=== PATIENT | female | born 1995 | race African-American/Black ===

== ENCOUNTER 2019-07-22 09:38 | Emergency (ER) | payer OTHER, SELFPAY ==
[2019-07-22 09:50] VITALS: BP 135/98; PULSE 108; RESP 18; TEMP 36.8
--- NOTE | 2019-07-22 10:09 | ED.GENADULT ---
HPI - General Adult General Chief complaint: Upper Respiratory Infection Stated complaint: sore throat Time Seen by Provider: 07/22/19 10:10 Source: patient and RN notes reviewed Limitations: no limitations History of Present Illness HPI narrative: This is a 23 years old female presented office for evaluation of sore throat since last . Associated with dry cough. Denies fever, Or sick contact. She does not smoke. She only take cough drops for her symptoms. Related Data Home Medications Medication Instructions Recorded Confirmed Bcp 07/22/19 Allergies Allergy/AdvReac Type Severity Reaction Status Date / Time No Known Allergies Allergy Verified 07/22/19 10:03 Review of Systems Review of Systems: Narrative: CONSTITUTIONAL: Denies fever EYES: Denies visual changes ENT: Denies otalgia. CARDIOVASCULAR: Denies chest pain RESPIRATORY: Denies dyspnea, wheezing GASTROINTESTINAL: Denies abdominal pain, nausea, vomiting, diarrhea. GENITOURINARY: Denies urinary symptoms SKIN: Denies rash MUSCULOSKELETAL: Denies acute back pain, joint pain, or myalgia. NEUROLOGIC: Denies Lightheaded or dizziness PMFSH Comments At time of signature, I agree with nursing past medical, surgical, social and family history. There is no relevant family history pertinent to the presenting complaint. Exam Narrative: Exam Narrative: GENERAL: This is a well-nourished, well-developed patient, in no apparent distress. EYES: Sclera clear/white. Vision is grossly intact. EARS: External ears normal, auditory canals clear and without drainage, TMs normal without perforation. Hearing grossly intact. NOSE: External nose normal with no obvious nasal discharge, nares noted drainage and edematous THROAT: Mucous membranes moist, posterior pharynx clear. NECK: Neck supple, non-tender without lymphadenopathy, masses or thyromegaly. CARDIOVASCULAR: Regular rate and rhythm without murmurs, gallops, or rubs. RESPIRATORY: Clear to auscultation. Breath sounds equal bilaterally. No wheezes, rales, or rhonchi. GASTROINTESTINAL: Abdomen soft, non-tender, nondistended. Bowel sounds are active. No hepato-splenomegaly, or palpable masses. No guarding. SKIN: warm, intact with no suspicious lesions or rash, good texture and turgor. NEURO: awake, alert, and oriented to person, place and time. There were no obvious focal neurologic abnormalities. Steady gait [place] Coma Scale Eye Opening: Spontaneous 4 [place] Coma Scale Motor: Obeys Commands 6 [place] Coma Scale Verbal: Oriented 5 Course Vital Signs Vital signs: Vital Signs Temperature 98.2 F 07/22/19 09:50 Pulse Rate 108 H 07/22/19 09:50 Respiratory Rate 18 07/22/19 09:50 Blood Pressure 135/98 H 07/22/19 09:50 Temperature 98.2 F 07/22/19 09:50 Pulse Rate 108 H 07/22/19 09:50 Respiratory Rate 18 07/22/19 09:50 Blood Pressure 135/98 H 07/22/19 09:50 Medical Decision Making MDM Narrative Medical decision making narrative: Discharge instructions reviewed with patient, as well as provided in writing per nursing staff. The instructions also include specific and strict return/GO TO THE ER as well as f/u information. All questions have been answered, and the patient deny any further questions with discharge and discharge plan. Differential Diagnosis Differential Diagnosis: pneumonia, Allergic Rhinitis, Upper respiratory cough syndrome, Pharyngitis, Sinusitis, Bronchitis, otitis media, viral URI, Asthma/reactive airway disease, influenza Medical Records Medical records reviewed: Yes I reviewed the patient's medical records. Vital Signs Vital Signs: Vital Signs Temperature 98.2 F 07/22/19 09:50 Pulse Rate 108 H 07/22/19 09:50 Respiratory Rate 07/22/19 09:50 Blood Pressure 135/98 H 07/22/19 09:50 Temperature 98.2 F 07/22/19 09:50 Pulse Rate 108 H 07/22/19 09:50 Respiratory Rate 18 07/22/19 09:50 Blood Pressure 135/98 H 07/22/19 09:50 Lab Da
== END 2019-07-22 10:22 | disposition home or self-care (01) ==
PROVIDERS: Emergency Provider Nurse Practitioner
DX: J06.9 Acute upper respiratory infection, unspecified (principal); R03.0 Elevated blood-pressure reading, without diagnosis of hypertension
CPT/HCPCS: 87081; 87880; 99203; G0463

== ENCOUNTER 2020-02-10 19:19 | Emergency (ER) | payer OTHER, SELFPAY ==
--- NOTE | 2020-02-10 19:20 | ED.GENADULT ---
HPI - General Adult General Chief complaint: Dental/Oral Stated complaint: right side tooth pain Time Seen by Provider: 02/10/20 19:20 Source: patient Mode of arrival: ambulatory Limitations: no limitations History of Present Illness HPI narrative: 24-year-old female patient presents to the [facility] with complaints of right-sided dental pain and right ear pain. Patient states that she has had the dental pain now for about a month and is continued to get worse and recently has started making her right ear hurt. Patient states she was taking Tylenol and ibuprofen at times when it would hurt but nothing consistently. Denies any fevers, body aches or chills. Patient states that she does not have a current dentist at this time. Patient denies or breast-feeding Related Data Home Medications Medication Instructions Recorded Confirmed No Home Medications 02/10/20 02/10/20 Allergies Allergy/AdvReac Type Severity Reaction Status Date / Time No Known Allergies Allergy Verified 02/10/20 19:32 Review of Systems Review of Systems: Narrative: CONSTITUTIONAL: Denies fever, chills, or sweats. EYES: Denies visual changes, redness, or discharge. ENT: Denies rhinorrhea, congestion, sore throat, positive right otalgia. Positive right lower dental pain x1 month CARDIOVASCULAR: Denies chest pain, palpitations, or edema. RESPIRATORY: Denies cough or dyspnea. GASTROINTESTINAL: Denies abdominal pain, nausea, vomiting, or diarrhea. GENITOURINARY: Denies dysuria or hematuria. SKIN: Denies rash or itching. MUSCULOSKELETAL: Denies back pain, joint pain, or myalgia. NEUROLOGIC: Denies headache, numbness, or weakness. PSYCHIATRIC: Denies anxiety or depression. PMFSH Comments At the time of my signature I agree with nursing past medical history, surgical, social, and family history. There is no relevant family history pertinent to the presenting complaint. Exam Narrative: Exam Narrative: GENERAL: Well-appearing, well-nourished, and in no acute distress. HEAD: Normocephalic, atraumatic. EYES: PERRLA and EOMI. ENT: Nares clear, no rhinorrhea or epistaxis. Mucous membranes moist. Right TM does have some erythema noted. The canal is clear. Patient does have a broken tooth noted to the back right lower molar with surrounding erythema and tenderness. No obvious abscess noted. No obvious swelling noted to the cheek at this time. NECK: Supple. No lymphadenopathy CHEST: Clear to auscultation. No respiratory distress. HEART: Regular rate and rhythm. No murmur heard. Normal peripheral pulses. ABDOMEN: Soft, nontender, nondistended, normal active bowel sounds. EXTREMITIES: Normal range of motion. No edema. SKIN: Warm, dry, no rash. NEURO: No focal deficits. Alert and oriented x3. Course Vital Signs Vital signs: Vital Signs Temperature 37.1 C 02/10/20 19:25 Pulse Rate 91 02/10/20 19:25 Respiratory Rate 20 02/10/20 19:25 Blood Pressure 180/90 H 02/10/20 19:25 Pulse Oximetry 99 02/10/20 19:25 Temperature 37.1 C 02/10/20 19: Pulse Rate 91 02/10/20 19:25 Respiratory Rate 20 02/10/20 19:25 Blood Pressure 180/90 H 02/10/20 19:25 Pulse Oximetry 99 02/10/20 19:25 Vital signs reviewed. The patient has been informed that they may have pre-hypertension or Hypertension based on a BP reading in the department. I recommend that the patient call the primary care provider listed on their discharge instructions or a physician of their choice this week to arrange follow up for further evaluation of possible pre-hypertension or Hypertension Medical Decision Making Differential Diagnosis Differential Diagnosis: Differential diagnosis: Dental caries, periodontal disease, avulsed tooth, tooth infections, mandibular infection, Nghia's angiana, upper tooth infection, dry socket, gingivitis, acute necrotizing ulcerative gingivitis, sialolithiasis. Cussed with patient that it does look like she has a dental infection
[2020-02-10 19:25] VITALS: BP 180/90; PULSE 91; RESP 20; TEMP 37.1; O2SAT 99
== END 2020-02-10 19:40 | disposition home or self-care (01) ==
PROVIDERS: Emergency Provider Nurse Practitioner Family
DX: K02.9 Dental caries, unspecified (principal); H66.91 Otitis media, unspecified, right ear
CPT/HCPCS: 99213; G0463

== ENCOUNTER 2021-07-19 10:04 | Outpatient (CLI) | payer OTHER, SELFPAY ==
[2021-07-19 11:45] LABS: Basophils Percent Auto 0.3 % (0.2-1.2); Eosinophils Percent Auto 0.5 % (0-4.4); Hematocrit 32.5 % (37.0-47.0); Hemoglobin 10.5 g/dL (12.0-15.0); Immature Granulocyte Absolute 0.06 K/mm3 (0.00-0.031); Immature Granulocyte Percent A 0.8 % (0-0.5); Lymphocytes Absolute Auto 1.76 K/mm3 (0.9-3.2); Lymphocytes Percent Auto 22.4 % (18.3-44.2); Mean Corpuscular HGB Conc 32.3 g/dl (32-36); Mean Corpuscular Hemoglobin 28.3 pg (26-34); Mean Corpuscular Volume 87.6 fl (80-100); Mean Platelet Volume 9.6 fl (7.4-10.4); Monocytes Absolute Auto 0.5 K/mm3 (0.1-0.6); Monocytes Percent Auto 6.7 % (2.6-8.5); Neutrophils Absolute Auto 5.5 K/mm3 (1.3-6.7); Neutrophils Percent Auto 69.3 % (45.5-73.1); Platelet Count Result 166 k/mm3 (150-375); Red Blood Count 3.71 M/mm3 (4.2-5.4); Red Cell Distribution Width 14.1 % (11.5-14.5); White Blood Count 7.9 K/mm3 (4.5-10.0)
[2021-07-19 16:50] LABS: Rapid Plasma Reagin Non-Reactive (NonReactive)
== END 2021-07-19 10:05 | disposition home or self-care (01) ==
LOC: ANHOBOP 11:10
PROVIDERS: Visit Provider Obstetrics & Gynecology
DX: Z01.818 Encounter for other preprocedural examination (principal)
CPT/HCPCS: 36415; 85025; 86592; 86850; 86900; 86901

== ENCOUNTER 2021-07-19 10:04 | Outpatient (RCR) | payer OTHER, SELFPAY ==
[2021-07-19 11:33] VITALS: BP 123/80; PULSE 87
== END 2021-07-22 20:52 | disposition home or self-care (01) ==
LOC: ANHOBOP 10:04
PROVIDERS: Visit Provider Obstetrics & Gynecology
DX: O14.93 Unspecified pre-eclampsia, third trimester (principal); Z3A.36 36 weeks gestation of pregnancy
CPT/HCPCS: 59025

== ENCOUNTER 2021-07-20 07:39 | Inpatient (IN) | payer OTHER, SELFPAY ==
[2021-07-20] VITALS (52 sets, daily range): BP systolic 75–172; BP diastolic 26–149; PULSE 63–224; RESP 13–20; TEMP 36.4–37.4; O2SAT 97–100; BMI 37.9
--- OUTSIDE RECORDS SUMMARY | 2021-07-20 07:47 | XMS_ITS | Clinical Summary ---
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 Plan of Treatment No Plan of Treatment Recorded Assessments Includes: Assessments from this encounterNo Assessments Recorded Medical Equipment - Implanted Devices Includes: Current DevicesNo Medical Equipment Recorded Medications Administered Includes: Administered Medications from this encounterNo Administered Medications Recorded Results Includes: Results discussed during this encounterNo Results Recorded For Specified Dates History of Present Illness Includes: History of Present Illness from this encounterNo History of Present Illness Recorded Social History No Social History Recorded - Smoking Status Unknown Medical History Includes: Medical History addressed during this encounterNo Medical History Recorded Family History Includes: Family History addressed during this encounterNo Family History Recorded Review of Systems Includes: Review of Systems from this encounterNo Review of Systems Recorded Mental Status Includes: Mental Status from this encounterNo Mental Status Recorded Functional Status Includes: Functional Status from this encounterNo Functional Status Recorded Physical Exam Includes: Physical Exam from this encounterNo Physical Exam Recorded Insurance Includes: Active Insurance PoliciesNo Insurance Coverage Recorded Guarantor Relationship Effective Dates Guarantor Phone GUSTAVO LOWRY Self [phone]
--- OUTSIDE RECORDS SUMMARY | 2021-07-20 07:47 | XMS_ITS ---
:1995 Author Organization [facility] Address [address] [place] [address] Phone Care Team Providers Name Role Phone GIANA LEMOS, Trevor Unavailable [phone] Plan of Treatment No Plan of Treatment Recorded Assessments Includes: Assessments for all patient encountersNo Assessments Recorded Medical Equipment - Implanted Devices Includes: Current and historical DevicesNo Medical Equipment Recorded Medications Administered Includes: Administered Medications in patient's chartNo Administered Medications Recorded Results Includes: Results from 07/20/2020 through 07/20/2021No Results Recorded For Specified Dates History of Present Illness History of Present Illness not supported for this document typeNo History of Present Illness Recorded Social History No Social History Recorded - Smoking Status Unknown Medical History Includes: Medical History in patient's chartNo Medical History Recorded Family History Includes: Family History in patient's chartNo Family History Recorded Review of Systems Review of Systems not supported for this document typeNo Review of Systems Recorded Mental Status Mental Status not supported for this document typeNo Mental Status Recorded Functional Status Functional Status not supported for this document typeNo Functional Status Recorded Physical Exam Physical Exam not supported for this document typeNo Physical Exam Recorded Insurance Includes: Active Insurance PoliciesNo Insurance Coverage Recorded Guarantor Relationship Effective Dates Guarantor Phone GUSTAVO LOWRY Self [phone]
--- NOTE | 2021-07-20 07:48 | WPDHPUPDATE1 ---
History and Physical Update Update Date/Time: 07/20/21 07:48 History and Physical has been reviewed, including an updated exam of the patient. There are NO changes in the patient's condition. Risks, benefits, and alternatives have been discussed and questions answered. Patient agrees to proceed with procedure.
--- NOTE | 2021-07-20 07:48 | PM.IMHP ---
H&P: [facility] History of Present Illness Date/Time: 07/20/21 07:48 This patient is a 25-year-old multigravida female with a term gestation has a previous . We have agreed to perform repeat . has no complaints. She denies any contractions, loss of fluid, vaginal bleeding. She denies any nausea, vomiting, fever, chills. She denies any chest pain or shortness of breath. Chief Complaint: Previous Review of Systems Review of Systems: All systems reviewed & are unremarkable except as noted in HPI and below Constitutional: Constitutional: Denies chills, Denies fatigue, Denies fever(s) and Denies weakness Eyes: Eyes: Denies blurry vision, Denies change in vision, Denies loss of peripheral vision, Denies loss of vision, Denies other visual disturbances and Denies eye pain ENT: Denies vertigo, Denies dizziness, Denies hearing loss, Denies mouth pain, Denies nasal obstruction, Denies neck mass and Denies neck pain Cardiovascular: Cardiovascular: Denies chest pain, Denies diaphoresis, Denies syncope, Denies leg edema and Denies dyspnea Respiratory: Respiratory: Denies chest congestion, Denies cough, Denies hemoptysis, Denies dyspnea and Denies wheezing Gastrointestinal: Gastrointestinal: Denies abdominal pain, Denies constipation, Denies diarrhea, Denies nausea and Denies vomiting Genitourinary: Genitourinary: Denies hematuria, Denies change in libido, Denies nocturia, Denies genital lesions, Denies flank pain and Denies urinary urgency Musculoskeletal: Musculoskeletal: Denies abnormal gait, Denies back pain, Denies myalgias, Denies arthralgias, Denies joint swelling, Denies muscle weakness and Denies neck pain Integumentary/Breasts: Skin/Breast: Denies swelling, Denies breast pain, Denies breast mass, Denies dry skin, Denies nipple discharge, Denies unusual bruising and Denies jaundice Neurologic: Denies Neuro-related abnormal movements, Denies Abnormal speech present, Denies abnormal gait, Denies behavioral changes, Denies confusion, Denies vertigo, Denies dizziness, Denies syncope, Denies loss of vision, Denies memory loss, Denies convulsions and Denies weakness Psychiatric: Psychiatric: Denies abnormal sleep pattern, Denies behavioral changes, Denies change in libido, Denies confusion, Denies depression, Denies anhedonia and Denies memory loss Endocrine: Endocrine: Reports no additional endocrine complaints, Denies change in libido and Denies fatigue Hematologic/Lymphatic: Hematologic/Lymphatic: Reports no additional hematologic/lymphatic complaints Allergic/Immunologic: Allergic/Immunologic: Reports no additional allergic/immunologic complaints and Denies wheezing [facility] Family History Family History (Updated 07/07/21 @ 12:40 by Song Washington RN) Other No pertinent family history Social History Social History Substance use: never Spiritual care concerns: No Meds Home Medications and Allergies Home Medications Medication Instructions Recorded Confirmed Type PNV cmb#95-ferrous fumarate-FA 1 tablet PO DAILY 07/07/21 07/07/21 History [] aspirin 81 mg PO DAILY 07/07/21 07/07/21 History folic acid 1 mg PO DAILY 07/07/21 07/07/21 History Allergies Allergy/AdvReac Type Severity Reaction Status Date / Time No Known Allergies Allergy Verified 02/10/20 19:32 Exam Const: General: cooperative, healthy appearing, comfortable and no acute distress; No confusion Orientation/consciousness: oriented to person, oriented to place, oriented to time and No confusion HENMT: Head: normal to inspection Ears: external ears normal General nose exam: Normal external nose present Face and sinus: normal facial exam Eyes: General: appearance normal, both eyes and all related structures Neck: Neck: normal visual inspection, trachea midline and supple Resp: Auscultation: clear to auscultation bilaterally, no crackles, no rales, no rhonchi a
--- OUTSIDE RECORDS SUMMARY | 2021-07-20 07:48 | XMS_ITS | Encounter Summary ---
:1995 Author Reason for Visit None recorded. Assessment and Plan 1. Pre-eclampsia ? non-stress test Discussion Note: None recorded.Patient educational handouts: No information available. Plan of Care Reminders Provider Appointments Surg Post 07/27/2021 Lian Ramirez, Op 3:00PM Lab None ? ? recorded. Referral None ? ? recorded. Procedures None ? ? recorded. Surgeries None ? ? recorded. Imaging 07/05/2021 [place] Non-stress Test Medications Name Start Date ? ? Baby Aspirin ? PNV-DHA 27 mg iron-1 mg-300 mg capsule ? TAKE ONE CAPSULE BY MOUTH EVERY DAY Medications Administered None recorded. Vitals None recorded. Results Lab Results None recorded. Allergies Code Code System Name Reaction Severity Onset NKDA ? ? ? Problems Name Status Onset Date Source ? Active 02/28/2021 ? Pre-eclampsia Active 06/15/2021 ? Procedures Date Name Performed by ? 11/14/2018 Section Information not elias zaragoza
--- OUTSIDE RECORDS SUMMARY | 2021-07-20 07:48 | XMS_ITS | Encounter Summary ---
:1995 Author Reason for Visit OB visit Assessment and Plan Assessment Note Patient is ___weeks . Discu ssed plan. 1. Routine care Discussion Note: None recorded.Patient educational handouts: No information available. Plan of Care Reminders Provider Appointments Surg Post 07/27/2021 Lian Nelson Op 3:00PM MD James Lab None ? ? recorded. Referral None ? ? recorded. Procedures None ? ? recorded. Surgeries None ? ? recorded. Imaging None ? ? recorded. Medications Name Start Date ? ? Baby Aspirin ? PNV-DHA 27 mg iron-1 mg-300 mg capsule ? TAKE ONE CAPSULE BY MOUTH EVERY DAY Medications Administered None recorded. Vitals Height Weight BMI Blood Pressure 5 ft 2 in 207 lbs 37.9 kg/m2 131/87 mm[Hg] Results Lab Results None recorded. Allergies Code Code System Name Reaction Severity Onset NKDA ? ? ? Problems Name Status Onset Date Source ? Active 02/28/2021 ? Pre-eclampsia Active 06/15/2021 ? Procedures Date Name Performed by
--- OUTSIDE RECORDS SUMMARY | 2021-07-20 07:48 | XMS_ITS ---
:1995 Author Care Team Providers Name Role Phone Kisha Sahu Primary Care Provider Unavailable Allergies Code Code System Name Reaction Severity Status Onset NKDA ? Medications Name Status Start Date Stop Date ? ? Baby Aspirin Active ? Not available metronidazole 500 mg tablet Completed ? 03/19 TAKE 1 TABLET BY MOUTH TWICE DAILY FOR 7 DAYS PNV-DHA 27 mg iron-1 mg-300 mg capsule Active ? Not available Completed ? 05/23/2021 DHA 200 mg capsule Completed ? 05/19 Triveen-Duo DHA 29 mg-1 mg-400 mg oral pack Completed ? 06/06/2021 Take 1 pack by oral route. Problems Name Status Onset Date Source ? Active 02/28/2021 ? Pre-eclampsia Active 06/15/2021 ? Procedures Date Name Performed by ? 11/14/2018 Section Information not avai lable ? Caesarean Section Information not avai lable 02/15/2021 US, Obstetric, Limited [place] [address] [place] [address] ([address]) 04/13/2021 US, Obstetric, 2Nd or 3Rd Trimester Alice smith [address] [place] [address] ([address]) 06/15/2021 US, Obstetric, Follow-up [place]
--- OUTSIDE RECORDS SUMMARY | 2021-07-20 07:48 | XMS_ITS | Encounter Summary ---
:1995 Author Reason for Visit None recorded. Assessment and Plan 1. Maternal obesity complicating , childbirth and the puerperium, antepartum ? US, obstetric, biophysical profile + non-stress test Discussion Note: None recorded.Patient educational handouts: No information available. Plan of Care Reminders Provider Appointments Surg Post Op Maira Nelson 07/27/2021 MD James 3:00PM Lab None recorded. ? ? Referral None recorded. ? ? Procedures None recorded. ? ? Surgeries None recorded. ? ? Imaging US, Obstetric, [facility] Biophysical Profile + 07/12/2021 Non-stress Test Medications Name Start Date ? [...]
--- OUTSIDE RECORDS SUMMARY | 2021-07-20 07:48 | XMS_ITS | Encounter Summary ---
:1995 Author Reason for Visit None recorded. Assessment and Plan 1. Chronic hypertension complica ting AND/OR reason for care during ? US, obstetric, follow-up ? US, obstetric, biophysical profile + non-stress test Discussion Note: None recorded.Patient educational handouts: No information available. Plan of Care Reminders Provider Appointments Surg Post Op Maira Nelson 07/27/2021 MD James 3:00PM Lab None recorded. ? ? Referral None recorded. ? ? Procedures None recorded. ? ? Surgeries None recorded. ? ? Imaging US, Obstetric, [facility] Follow-up 07/19/2021 ? , [facility] Bi[facility] Profile + 07/19/2021 Non-stress Test Medications Name Start Date ? ? Baby Aspirin ? PNV-DHA 27 mg iron-1 mg-300 mg capsule ? TAKE ONE CAPSULE BY MOUTH EVERY DAY Medications Administered None recorded. Vitals None recorded. Results Lab Results None recorded. Allergies Code Code System Name Reaction Severity Onset NKDA ? ? ? Proble
--- OUTSIDE RECORDS SUMMARY | 2021-07-20 07:48 | XMS_ITS | Encounter Summary ---
[...] BMI Blood Pressure 5 ft 2 in 202 lbs 36.9 kg/m2 (1) 140/91 mm[H g] (2) 145/86 mm[Hg ] Results Lab Results None recorded. Allergies Code Code System Name Reaction Severity Onset NKDA ? ? ? Problems Name Status Onset Date Source ? Active 02/28/2021 ? Pre-eclampsia Active 06/15/2021 ?
--- OUTSIDE RECORDS SUMMARY | 2021-07-20 07:48 | XMS_ITS | Encounter Summary ---
:1995 Author Reason for Visit OB visit [id number] Assessment and Plan 1. Routine care ? section (SURG) Discussion Note: None recorded.Patient educational handouts: No information available. Plan of Care Reminders Provider Appointments Surg Post Op Maira Nelson 07/27/2021 MD James 3:00PM Lab None ? ? recorded. Referral None ? ? recorded. Procedures None ? ? recorded. Surgeries Gavin Surgery Section (SURG) 07/20/2021 [facility] Imaging None ? ? recorded. Medications Name Start Date ? ? Baby Aspirin ? PNV-DHA 27 mg iron-1 mg-300 mg capsule ? TAKE ONE CAPSULE BY MOUTH EVERY DAY Medications Administered None recorded. Vitals Height Weight BMI Blood Pressure 5 ft 2 in 205 lbs 37.5 kg/m2 134/84 mm[Hg] Results Lab Results None recorded. Allergies Code Code System Name Reaction Severity Onset NKDA ? ? ? Problems Name Status Onset Date Source ? Active 02/28/2021 ? Pre-eclampsia Active
--- OUTSIDE RECORDS SUMMARY | 2021-07-20 07:48 | XMS_ITS | Encounter Summary ---
:1995 Author Reason for Visit OB visit Assessment and Plan 1. Maternal obesity complicating , childbirth and the puerperium, antepartum 2. History of pre-eclampsia Discussion Note: None recorded.Patient educational handouts: No [...] BMI Blood Pressure 5 ft 2 in 206 lbs 37.7 kg/m2 126/87 mm[Hg] Results Lab Results None recorded. Allergies Code Code System Name Reaction Severity Onset NKDA ? ? ? Problems Name Status Onset Date Source ? Active 02/28/2021 ? Pre-eclampsia Active 06/15/2021 ? Procedures Date Name
--- OUTSIDE RECORDS SUMMARY | 2021-07-20 07:48 | XMS_ITS | Encounter Summary ---
:1995 Author Reason for Visit OB visit 32wks Assessment and Plan 1. Routine care Discussion Note: None recorded.Patient [...] ft 2 in 207 lbs 37.9 kg/m2 (1) 139/86 mm[H g] (2) 140/90 mm[Hg ] Results Lab Results None recorded. Allergies Code Code System Name Reaction Severity Onset NKDA ? ? ? Problems Name Status Onset Date Source ? Active 02/28/2021 ? Pre-eclampsia Active 06/15/2021 ? Procedures Date Name Performed by ?
--- OUTSIDE RECORDS SUMMARY | 2021-07-20 07:48 | XMS_ITS | Encounter Summary ---
:1995 Author Reason for Visit NST [id number] 08/10/2021 Assessment and Plan 1. Pre-eclampsia ? non-stress test Discussion Note: None recorded.Patient educational handouts: No information available. Plan of Care Reminders Provider Appointments Surg Post 07/27/2021 Lian Ramirez, Op 3:00PM Lab None ? ? recorded. Referral None ? ? recorded. Procedures None ? ? recorded. Surgeries None ? ? recorded. Imaging 07/12/2021 [place] Non-stress Test Medications Name Start Date ? ? Baby Aspirin ? PNV-DHA 27 mg iron-1 mg-300 mg capsule ? TAKE ONE CAPSULE BY MOUTH EVERY DAY Medications Administered None recorded. Vitals Height Weight BMI Blood Pressure 5 ft 2 in 204 lbs 37.3 kg/m2 125/85 mm[Hg] Results Lab Results None recorded. Allergies Code Code System Name Reaction Severity Onset NKDA ? ? ? Problems Name Status Onset Date Source ? Active 02/28/2021 ? Pre-eclampsia Active 06/15/2021 ? Procedures Date Name Performed by ?
--- OUTSIDE RECORDS SUMMARY | 2021-07-20 07:48 | XMS_ITS | Encounter Summary ---
[...] recorded. Surgeries None ? ? recorded. Imaging 07/19/2021 [place] Non-stress Test Medications Name Start Date ? [...]
--- OUTSIDE RECORDS SUMMARY | 2021-07-20 07:48 | XMS_ITS | Encounter Summary ---
:1995 Author Reason for Visit None recorded. Assessment and Plan 1. -induced hypertensio n ? US, obstetric, biophysical profile + non-stress test Discussion Note: None recorded.Patient educational handouts: No information available. Plan of Care Reminders Provider Appointments Surg Post Op Maira Nelson 07/27/2021 MD James 3:00PM Lab None recorded. ? ? Referral None recorded. ? ? Procedures None recorded. ? ? Surgeries None recorded. ? ? Imaging US, Obstetric, [facility] Biophysical Profile + 06/21/2021 Non-stress Test Medications Name Start Date ? [...]
--- OUTSIDE RECORDS SUMMARY | 2021-07-20 07:48 | XMS_ITS | Encounter Summary ---
:1995 Author Reason for Visit OB visit Assessment and Plan 1. Pre-eclampsia Discussion Note: None recorded.Patient educational handouts: No [...]
--- OUTSIDE RECORDS SUMMARY | 2021-07-20 07:48 | XMS_ITS | Encounter Summary ---
[...] None recorded. ? ? Imaging US, Obstetric, [facility] Biophysical Profile + 07/05/2021 Non-stress Test Medications Name Start Date ? [...]
--- OUTSIDE RECORDS SUMMARY | 2021-07-20 07:48 | XMS_ITS | Encounter Summary ---
[...] recorded. Surgeries None ? ? recorded. Imaging 06/28/2021 [place] Non-stress Test Medications Name Start Date ? [...]
--- OUTSIDE RECORDS SUMMARY | 2021-07-20 07:48 | XMS_ITS | Encounter Summary ---
[...] None recorded. ? ? Imaging US, Obstetric, [facility] Biophysical Profile + 06/28/2021 Non-stress Test Medications Name Start Date ? [...]
--- OUTSIDE RECORDS SUMMARY | 2021-07-20 07:49 | XMS_ITS | Encounter Summary ---
:1995 Author Reason for Visit OB visit Assessment and Plan 1. Elevated blood-pressure readi ng without diagnosis of hypertension 2. History of pre-eclampsia ? protein:creatinine ratio, urine ? uric acid, serum or plasma ? CMP, serum or plasma ? CBC w/ auto diff 3. Deliveries by ? section (SURG) Discussion Note: None recorded.Patient educational handouts: No information available. Plan of Care Reminders Provider Appointments Surg Post Op Maira Nelson 07/27/2021 MD [facility] 3:00PM [facility] Protein:creatinine 06/06/2021 Hospital (Lab ) Ratio, Urine ? Uric Acid, [facility] Serum or Plasma 06/06/2021 Hospital (Lab) ? CMP, Serum [facility] or Plasma 06/06/2021 Hospital (Lab) ? CBC W/ Auto [facility] Diff 06/06/2021 Hospital (Lab) Referral None ? ? recorded. Procedures None ? ? recorded. Surgeries [facility] Section (SURG) 06/06/2021 [facility] None ? ? recorded.
--- OUTSIDE RECORDS SUMMARY | 2021-07-20 07:49 | XMS_ITS | Encounter Summary ---
:1995 Author Reason for Visit OB visit 26w5d Assessment and Plan 1. Routine care Discussion [...] ft 2 in 202 lbs 36.9 kg/m2 116/76 mm[Hg] Results Lab Results None recorded. Allergies Code Code System Name Reaction Severity Onset NKDA ? ? ? Problems Name Status Onset Date Source ? Active 02/28/2021 ? Pre-eclampsia Active 06/15/2021 ? Procedures Date Name Performed by ? 11/14/2018
--- OUTSIDE RECORDS SUMMARY | 2021-07-20 07:49 | XMS_ITS ---
:1995 Author Care Team Providers Name Role Phone Mckayla Ly Primary Care Provider Unavailable Allergies Code Code System Name Reaction Severity Status Onset NKDA ? Medications No Medications Reported Notes: on OCP by Paige Barger Problems None recorded. Procedures None recorded. Results Lab Results Date Name Specimen Result Interpretation Description Value Range Status Address ? 01/30/2012 Glucose, Normal Glucose 96 mg/dL 65-99 Final [facility] Serum mg/dL Diagnostic [facility]: [id number] [facility] 01/30/2012 Hemoglobin High Hemoglobin 6.0 % of <5.7 % Fi nal [facility] a1C a1C total HGB of Diagnos tics - total [place]: [address] [facility] 01/30/2012 Alt (Sgpt) Normal Alt 12 U/L 6-19 Final Qu est U/L Diagnostic [facility]: [id number] [facility] krish [facility] 01/30/2012 Ast (Sgot) Normal Ast 14 U/L 12-32 Final Qu est U/L Diagnostic [facility]: [id number] [facility] krish
--- OUTSIDE RECORDS SUMMARY | 2021-07-20 07:49 | XMS_ITS | Encounter Summary ---
:1995 Author Reason for Visit None recorded. Assessment and Plan 1. -induced hypertensio n ? US, obstetric, follow-up ? US, obstetric, biophysical profile + non-stress test Discussion Note: None recorded.Patient educational handouts: No information available. Plan of Care Reminders Provider Appointments Surg Post Op Maira Nelson 07/27/2021 MD James 3:00PM Lab None recorded. ? ? Referral None recorded. ? ? Procedures None recorded. ? ? Surgeries None recorded. ? ? Imaging US, Obstetric, Courtney khan Follow-up 06/15/2021 ? US, Obstetric, Courtney khan Biophysical Profile + 06/15/2021 Non-stress Test Medications Name Start Date ? [...]
--- OUTSIDE RECORDS SUMMARY | 2021-07-20 07:49 | XMS_ITS | Encounter Summary ---
:1995 Author Reason for Visit None recorded. Assessment and Plan 1. -induced hypertensio n ? non-stress test Discussion Note: None recorded.Patient educational handouts: No information available. Plan of Care Reminders Provider Appointments Surg Post 07/27/2021 Lian Ramirez, Op 3:00PM Lab None ? ? recorded. Referral None ? ? recorded. Procedures None ? ? recorded. Surgeries None ? ? recorded. Imaging 06/15/2021 [place] Non-stress Test Medications Name Start Date ? [...]
--- OUTSIDE RECORDS SUMMARY | 2021-07-20 07:49 | XMS_ITS | Encounter Summary ---
:1995 Author Reason for Visit OB visit Assessment and Plan 1. Routine care Discussion [...] BMI Blood Pressure 5 ft 2 in 201.4 lbs 36.8 kg/m2 123/82 mm[Hg] Results Lab Results None recorded. Allergies Code Code System Name Reaction Severity Onset NKDA ? ? ? Problems Name Status Onset Date Source ? Active 02/28/2021 ? Pre-eclampsia Active 06/15/2021 ? Procedures Date Name Performed by ? 11/14/2018 Section Information not avai lab
--- NOTE | 2021-07-20 08:07 | LDADM ---
This patient, Conchita Capellan, was admitted to Labor/Delivery/Recovery 120 on 07/20/21 at 07:39. Plans for labor, pain management and were discussed with patient. Patient/family oriented to hospital policies and general routines including ID bracelet, bed and alarms, visiting hours, pain management, procedures, bathroom and other care routines, personal items, smoking policy, room service/diet and guest tray routines, security routines, and visiting hours. Patient/Family are encouraged to report perceived risks to care and to ask questions if they do not understand what they are told or what they should do. See OBIX for further documentation.
--- NOTE | 2021-07-20 08:17 | WPDANESEPPF ---
Anes - Initial Pre Proc Eval Procedure: Operation Date: 07/20/21 09:00 Proposed Procedures p Repeat Section - Lenore Ramirez MD Date/Time: 07/20/21 08:17 Surgeon: Lenore Ramirez MD Pre Op Diagnosis: repeat , pre-eclampsia Patient Data Age: 25 Gender: F Height: 1.57 m Weight: 94 kg Last Vital Signs Pulse 99 07/20/21 07:56 BP 150/93 H 07/20/21 07:56 Allergies Allergy/AdvReac Type Severity Reaction Status Date / Time No Known Allergies Allergy Verified 02/10/20 19:32 Home Medications Medication Instructions Recorded Confirmed Type PNV cmb#95-ferrous fumarate-FA 1 tablet PO DAILY 07/07/21 07/07/21 History [] aspirin 81 mg PO DAILY 07/07/21 07/07/21 History folic acid 1 mg PO DAILY 07/07/21 07/07/21 History Patient hx anesthesia problems: none Family hx anesthesia problems: none Results Review: All pre-operative results and documents have been reviewed as part of the pre-operative evaluation. PMFSH Family History Family History Other No pertinent family history Social History Social History Smoking status: Never smoker Second hand tobacco smoke exposure: No Substance use: never Spiritual care concerns: No Anes - Eval Final PreProcedure Day of Procedure 07/20/21 08:17 Patient weight: obese Heart: regular rate and rhythm Lungs: clear to auscultation Airway: Mallampati scale class II Neurological: alert and oriented Last oral intake: >/= 8 hours ASA classification: II Emergent: no Anesthetic plan: proceed Anesthesia type and monitoring: regional spinal and standard monitoring Results Review: All pre-operative results and documents have been reviewed as part of the pre-operative evaluation. Informed Consent: The patient's anesthetic plan and its attendant risks and benefits were discussed with the patient/family/POA. Questions were solicited and answers provided to the satisfaction of the patient/family/POA.
[2021-07-20] MEDS: LACTATED RINGERS 1,000 ML 125 ML IV CONT (08:19)
[2021-07-20 08:42] LABS: Add Urine Microscopic? YES; Appearance Urine Cloudy (Clear); Bacteria Urine Trace /hpf; Bilirubin Urine Negative (Negative); Blood Urine Negative (Negative); Color Urine Yellow (Yellow); Glucose Urine UA Negative (Negative); Ketones Urine Negative (Negative); Leukocyte Esterase Ur Trace LEU/UL (NEGATIVE); Mucus Urine Few /lpf; Nitrate Urine Negative (Negative); Protein Urine 1+ mg/dL (Negative); Squamous Epithelial Cell Urine Many /hpf (Few)
[2021-07-20 08:43] LABS: Creatinine Urine 276.7 mg/dL; Specific Grav Ur 1.031 (1.001-1.035); Total Protein Urine Random 13 mg/dL; Ur Ttl Prot Creatinine Ratio 0.05 mg/mg (0-0.20)
[2021-07-20 08:45] LABS: Alanine Aminotransferase 15 U/L (4-35); Albumin Level 3.8 g/dL (3.5-5.1); Alkaline Phosphatase 141 U/L (38-126); Anion Gap 6 mmol/L (8-16); Aspartate Amino Transferase 22 U/L (14-36); Bilirubin,Total 0.1 mg/dL (0.2-1.3); Blood Urea Nitrogen 10 mg/dL (7-17); Calcium 9.2 mg/dL (8.4-10.2); Carbon Dioxide 22 mmol/L (22-30); Chloride 107 mmol/L (98-107); Estimated CRCL calculation 114 ml/min; Estimated Glomerular Filt Rate > 60; Glucose 92 mg/dL (65-110); Potassium 3.9 mmol/L (3.4-5.0); Sodium 135 mmol/L (137-145); Uric Acid 4.8 mg/dL (2.5-7.5)
[2021-07-20 08:52] LABS: Amphetamine Screen Urine Negative (Negative); Barbiturate Screen Urine Negative (Negative); Benzodiazepines Screen Urine Negative (Negative); Cannabinoid Screen Urine Negative (Negative); Cocaine Screen Urine Negative (Negative); Methadone Screen Urine Negative (Negative); Opiate Screen Urine Negative (Negative); Phencyclidine Screen Urine Negative (Negative)
[2021-07-20] MEDS: ceFAZolin 2 GM/D5W 50 ML 2 GM/50 ML BAG IVPB (08:52)
[2021-07-20] MEDS: KETOROLAC 30 MG/ML VIAL (*BKC) IV PUSH (09:24)
--- NOTE | 2021-07-20 09:31 | P.OP_ITS ---
Procedure Note - Detailed Date of Procedure 07/20/21 Pre-op Diagnosis repeat , pre-eclampsia Post-op Diagnosis same Procedure Performed Low-transverse section Surgeon Lenore Ramirez MD Anesthesia spinal Indications Previous , preeclampsia Findings Normal gestational maternal anatomy, average size infant for gestational age, normal Apgars. Description of Procedure The patient was taken the operating room. She was prepped and draped in dorsal supine position with a leftward tilt. This was done after spinal anesthetic was applied. A low-transverse skin incision was made and carried down till of the fascia with the knife. The fascial incision was made with the knife. The fascial incision was extended laterally with Moreno scissors. The fascia was tented upward superiorly and inferiorly the rectus muscles were dissected off bluntly. The rectus muscles were the midline. The preperitoneal fat and peritoneum were dissected open bluntly at the superior aspect of the se parated rectus muscles. The peritoneal incision was extended superior and inferior with good position of bladder. The uterine incision was made with a scalpel down to the level of the amniotic cavity. The amniotic cavity was entered bluntly. The was delivered. The cord was clamped and cut and the infant was handed off to waiting pediatric staff. Cord bloods were obtained. The placenta was removed manually. The uterus was exteriorized. The uterus was cleared of all clots, debris and membranes. The uterus was closed in 0 Vicryl running lock fashion. An imbricating over a was placed along the incision line as well. The uterus was returned to the abdomen. The gutters were cleared of all clots and debris. The fascia was closed with 0 Vicryl running fashion. The subcutaneous tissue was irrigated pinpoint bleeders were cauterized. The skin was closed with subcuticular absorbable jann. The skin incision line was covered with glue. The patient tolerated the procedure well. She has taken recovery room in stable condition. Sponge lap and needle counts were correct x2. Estimated Blood Loss 500 Pathology yes Complications No immediate complications Condition stable Disposition PACU
[2021-07-20] MEDS: OXYTOCIN 30 UNITS/NS 500 ML 30 UNITS/500 ML BAG 125 UNITS IV CONT (10:19)
[2021-07-20] MEDS: MORPHINE SULFATE INJ (*CRX) 10 MG/ML AMP 3 MG IV PUSH (11:17)
--- NOTE | 2021-07-20 11:57 | PC.NURSE ---
Patient transferred to post room #292 per stretcher from labor and delivery. Support person present. Oriented to unit, room, information board, rooming in, admission packet and security measures. Patient verbalizes understanding.
[2021-07-20] MEDS: DEXTROSE 5%/0.45% SOD CHL 1,000 ML 125 ML IV CONT (14:54)
--- NOTE | 2021-07-20 15:21 | PC.NURSE ---
1220 - Introductions were made and mother led the discussion of her desires and plans to feed her baby. Mother has experience with pumping and feeding her first due to NICU admission. Parents verbalized that the plan is to pump and feed the infant. Reviewed handwashing to prevent infection before and after taking care of her baby. Mother voiced understanding to feed when she sees feeding cues, 8-12 times in 24 hours approximately every 2-3 hours from the start of the last feeding. RN offered education with regards to hand expression or assistance with if she chooses to do so. She states she might want to breastfeed but dad calmly and gently states that mom really wants to pump and feed, then mother agrees at this time. Mother will call out when she is ready to initiate pumping. RN offers assistance if mom desires. Reported to primary RN.
[2021-07-20] MEDS: diphenhydrAMINE HCl INJ 50 MG/ML VIAL (16:36)
[2021-07-20] MEDS: HYDROcodone/acetaminophen (*CRX) 5-325 MG TABLET 1 TAB PO ×2 (19:40→23:06)
[2021-07-20] MEDS: IBUPROFEN 600 MG TABLET PO (19:41)
[2021-07-20] MEDS: SIMETHICONE 80 MG TAB.CHEW PO (23:08)
[2021-07-21] MEDS: HYDROcodone/acetaminophen (*CRX) 5-325 MG TABLET 1 TAB PO ×5 (03:37→20:32)
[2021-07-21] MEDS: SIMETHICONE 80 MG TAB.CHEW PO ×5 (03:37→20:32)
[2021-07-21] MEDS: IBUPROFEN 600 MG TABLET PO ×3 (03:38→19:12)
[2021-07-21 04:00] VITALS: BP 124/84; PULSE 70; RESP 18; TEMP 36.5; O2SAT 98
[2021-07-21 04:59] LABS: Basophils Percent Auto 0.2 % (0.2-1.2); Eosinophils Percent Auto 0.3 % (0-4.4); Hematocrit 27.6 % (37.0-47.0); Hemoglobin 9.1 g/dL (12.0-15.0); Immature Granulocyte Absolute 0.09 K/mm3 (0.00-0.031); Immature Granulocyte Percent A 0.7 % (0-0.5); Lymphocytes Absolute Auto 2.76 K/mm3 (0.9-3.2); Lymphocytes Percent Auto 20.1 % (18.3-44.2); Mean Corpuscular Hemoglobin 28.2 pg (26-34); Mean Corpuscular Volume 85.4 fl (80-100); Mean Platelet Volume 10.1 fl (7.4-10.4); Monocytes Absolute Auto 1.3 K/mm3 (0.1-0.6); Monocytes Percent Auto 9.4 % (2.6-8.5); Neutrophils Absolute Auto 9.5 K/mm3 (1.3-6.7); Neutrophils Percent Auto 69.3 % (45.5-73.1); Platelet Count Result 171 k/mm3 (150-375); Red Blood Count 3.23 M/mm3 (4.2-5.4); White Blood Count 13.7 K/mm3 (4.5-10.0)
--- NOTE | 2021-07-21 07:44 | WPDANLDPN2 ---
Anes-Prog Note L&D Date/Time: 07/21/21 07:44 Comfortable throughout: section Neuraxial method: spinal Epidural/Spinal procedure site: clean & non-tender Neuro status: Neuro function grossly intact. Cardiovascular status: normal Respiratory status: normal Airway patency: baseline Mental status: baseline Post-Op hydration status: normal Vital Signs: Last Vital Signs Temp 36.4 C 07/20/21 23:09 Pulse 63 07/20/21 23:09 Resp 20 07/20/21 23:09 BP 124/81 07/20/21 23:09 Pulse Ox 100 07/20/21 23:09 Pain score (VAS): 0 I/O: Intake & Output 07/20/21 07/20/21 07/21/21 15:59 23:59 07:59 Intake Total 1100 150 Output Total 150 450 300 Balance 950 -300 -300 Post-procedural complaints: none Patient feedback: Patient satisfied with anesthetic care.
[2021-07-21 08:00] VITALS: BP 138/86; PULSE 70; RESP 16; TEMP 36.9; O2SAT 100
[2021-07-21] MEDS: DOCUSATE SODIUM 100 MG CAPSULE PO ×2 (08:25→17:09)
[2021-07-21] MEDS: POLYSACCHARIDE IRON COMPLEX 150 MG CAPSULE PO ×2 (08:25→17:06)
[2021-07-21] MEDS: MULTIVIT/MIN/PREN/FOL AC/IRON TABLET 1 TAB PO (08:25)
--- NOTE | 2021-07-21 08:47 | PM.OBPNVD ---
OB - PN: Subj Subjective Date/time seen: 07/21/21 08:47 Patient comments: no complaints, pain well controlled, tolerating diet and flatus present [place] baby status: doing well OB - PN: Obj Data Labs CBC & Chem 7: 07/21/21 03:49 07/20/21 08:24 Labs: Laboratory Results - last 24 hr 07/20/21 07/20/21 07/21/21 08:25 08:26 03:49 WBC 13.7 H RBC 3.23 L Hgb 9.1 L Hct 27.6 L MCV 85.4 MCH 28.2 MCHC 33.0 RDW 14.0 Plt Count 171 MPV 10.1 Immature Gran % (Auto) 0.7 H Neut % (Auto) 69.3 Lymph % (Auto) 20.1 Nicholas % (Auto) 9.4 H Eos % (Auto) 0.3 Baso % (Auto) 0.2 Lymph # (Auto) 2.76 Nicholas # (Auto) 1.3 H Eos # (Auto) 0.0 Baso # (Auto) 0.0 Abs Immat Gran (auto) 0.09 H Absolute Neuts (auto) 9.5 H Absolute Nucleated RBC 0.0 Nucleated RBC % 0.0 Protein/Creat Ratio 2 0.05 Urine Opiates Screen Negative Urine Methadone Screen Negative Ur Barbiturates Screen Negative Ur Phencyclidine Scrn Negative Ur Amphetamine Screen Negative U Benzodiazepines Scrn Negative Urine Cocaine Screen Negative U Cannabinoids Screen Negative OB - PN A/P Time Spent With Patient Time: Total time spent is greater than 50% in coordination of care (as documented) at patient's floor/unit and/or counseling patient:
--- NOTE | 2021-07-21 08:48 | PM.OBPNVD ---
OB - PN: Subj Subjective Date/time seen: 07/21/21 08:48 Patient comments: no complaints, pain well controlled, tolerating diet and flatus present [place] baby status: doing well OB - PN: Obj Data Labs CBC & Chem 7: 07/21/21 03:49 07/20/21 08:24 Labs: Laboratory Results - last 24 hr 07/20/21 07/20/21 07/21/21 08:25 08:26 03:49 WBC 13.7 H RBC 3.23 L Hgb 9.1 L Hct 27.6 L MCV 85.4 MCH 28.2 MCHC 33.0 RDW 14.0 Plt Count 171 MPV 10.1 Immature Gran % (Auto) 0.7 H Neut % (Auto) 69.3 Lymph % (Auto) 20.1 [place] % (Auto) 9.4 H Eos % (Auto) 0.3 Baso % (Auto) 0.2 Lymph # (Auto) 2.76 [place] # (Auto) 1.3 H Eos # (Auto) 0.0 Baso # (Auto) 0.0 Abs Immat Gran (auto) 0.09 H Absolute Neuts (auto) 9.5 H Absolute Nucleated RBC 0.0 Nucleated RBC % 0.0 Protein/Creat Ratio 2 0.05 Urine Opiates Screen Negative Urine Methadone Screen Negative Ur Barbiturates Screen Negative Ur Phencyclidine Scrn Negative Ur Amphetamine Screen Negative U Benzodiazepines Scrn Negative Urine Cocaine Screen Negative U Cannabinoids Screen Negative OB - PN A/P Plan day: 1 Plan: routine care Time Spent With Patient Time: Total time spent is greater than 50% in coordination of care (as documented) at patient's floor/unit and/or counseling patient: Time with patient: less than 15 minutes Review of Systems Review of Systems: All systems reviewed & are unremarkable except as noted in HPI and below Exam Narrative: Fundus firm. Vaginal flow controlled. Incision dry and intact. Negative homans. No redness, warmth, or pain of lower ext. Const: General: comfortable Chest: Breast/axilla inspection: normal inspection of the breasts Resp: Effort & Inspection: normal respiratory effort Auscultation: clear to auscultation bilaterally Cardio: Rate: regular rate GI: GI Palp: Yes Soft to palpation Psych: Appearance: grossly normal Affect: normal affect Attitude: cooperative Thought content: Yes Normal thought content present Judgement: Good judgement present (Psych)
[2021-07-21 15:45] VITALS: BP 148/88; PULSE 93; RESP 16; TEMP 35.9; O2SAT 100
[2021-07-21 19:25] VITALS: BP 139/86; PULSE 89; RESP 20; TEMP 36.7; O2SAT 100
[2021-07-22] MEDS: IBUPROFEN 600 MG TABLET PO (02:02)
[2021-07-22] MEDS: HYDROcodone/acetaminophen (*CRX) 5-325 MG TABLET 1 TAB PO (02:03)
[2021-07-22] MEDS: SIMETHICONE 80 MG TAB.CHEW PO (02:07)
[2021-07-22] MEDS: DOCUSATE SODIUM 100 MG CAPSULE PO (07:40)
[2021-07-22] MEDS: POLYSACCHARIDE IRON COMPLEX 150 MG CAPSULE PO (07:40)
[2021-07-22] MEDS: MULTIVIT/MIN/PREN/FOL AC/IRON TABLET 1 TAB PO (07:40)
--- NOTE | 2021-07-22 08:29 | P.PNOB_ITS ---
OB - PN: Subj Subjective Date/time seen: 07/22/21 08:29 Patient comments: no complaints, pain well controlled, tolerating diet and flatus present [place] baby status: doing well OB - PN: Obj Data Labs CBC & Chem 7: 07/21/21 03:49 07/20/21 08:24 OB - PN A/P Plan day: 2 Plan: routine care and discharge home (Follow up in 1 week) Time Spent With Patient Time: Total time spent is greater than 50% in coordination of care (as documented) at patient's floor/unit and/or counseling patient: Time with patient: less than 15 minutes Review of Systems Review of Systems: All systems reviewed & are unremarkable except as noted in HPI and below Exam Narrative: Fundus firm. Vaginal flow controlled. Incision dry and intact. Negative homans. No redness, warmth, or pain of lower ext. Const: General: comfortable Chest: Breast/axilla inspection: normal inspection of the breasts Resp: Effort & Inspection: normal respiratory effort Auscultation: clear to auscultation bilaterally Cardio: Rate: regular rate GI: GI Palp: Yes Soft to palpation Psych: Appearance: grossly normal Affect: normal affect Attitude: cooperative Thought content: Yes Normal thought content present Judgement: Good judgement present (Psych)
[2021-07-22 08:45] VITALS: BP 138/78; PULSE 79; RESP 18; TEMP 36.6; O2SAT 100
--- NOTE | 2021-07-22 09:41 | PM.OBDSVD ---
DS: Admitting Diagnosis Discharge Date 07/22/2021 Admitting Diagnosis previous OB - DS: Summary OB Procedures : None OB Procedures Intrapartum: OB Procedures: : None Peripartum Data Procedures: Procedures Operation Date: 07/20/21 09:00 Actual Procedure Side Surgeon p Section Not Applicable Lenore Ramirez MD Time Spent with Patient Time attestation: Total time spent providing and/or coordinating discharge services: DS: Data Data Completed and Pending Pending studies at discharge: Pending at discharge 07/20/21 09:07 Surgical [PTH] Routine Discharge Plan Discharge Attending physician on discharge: Lenore Ramirez Discharging Clinician: Kisha Sahu Patient Disposition: Home, Self-Care Activity: pelvic rest Diet: regular Patient Instructions: Antibiotic Form Stand Alone Forms: General Discharge Information Follow-up/Referrals: Lenore Ramirez MD [Physician] - Discharge Medications: New hydrocodone-acetaminophen 5-325 mg tablet 1 tablet PO Q6H PRN (Reason: pain) Qty: 20 RF: 0 ibuprofen 600 mg Tablet 600 mg PO Q6H PRN (Reason: Cramping) Qty: 20 RF: 0 Continued folic acid 1 mg Tablet 1 mg PO DAILY RF: 0 aspirin 81 mg Tablet 81 mg PO DAILY RF: 0 PNV cmb#95-ferrous fumarate-FA [] 28 mg iron- 800 mcg Tablet 1 tablet PO DAILY RF: 0 Date of admission: 07/20/21 07:39 Primary Care Provider: PHYSICIAN,[employer] CONSULTANT Admitting Provider: Lenore Ramirez Attending physician on admission: Lenore Ramirez Condition: Stable
--- NOTE | 2021-07-22 12:00 | PC.NURSE ---
Patient instructed to view the discharge video Mother & Baby Care, The First Two Weeks . Patient was given the opportunity and encouraged to ask questions. Patient verbalized understanding of information shared and has been given the mother/baby guide for home reference.
[2021-07-22 12:37] VITALS: BP 137/82; PULSE 101; RESP 16; TEMP 36.6; O2SAT 100
== END 2021-07-22 13:19 | disposition home or self-care (01) | DRG 540 ==
LOC: ANHLDR 07:45 → ANHOB2 12:16
PROVIDERS: Admitting Provider Obstetrics & Gynecology; Visit Provider Obstetrics & Gynecology
PROC: 10D00Z1 Extraction of Products of Conception, Low, Open Approach (ICD-10-PCS; CPT 59514; principal; 2021-07-20 09:00)
DX: O34.219 Maternal care for unspecified type scar from previous cesarean delivery (principal); O14.94 Unspecified pre-eclampsia, complicating childbirth; Z3A.37 37 weeks gestation of pregnancy; Z37.0 Single live birth
CPT/HCPCS: 36415; 80053; 80307; 81001; 82570; 84156; 84550; 85025; 87086; 88307; A9270; J0131; J0690; J1100; J1200; J1885; J2270; J2274; J2370; J2405; J2590; J7120

== ENCOUNTER 2022-01-28 16:06 | Emergency (ER) | payer OTHER, SELFPAY ==
[2022-01-28 16:16] VITALS: BP 174/109; PULSE 95; RESP 20; TEMP 36.8; O2SAT 99
[2022-01-28] MEDS: methylPREDNISolone SOD SUCC 125 MG VIAL IM (16:46)
--- NOTE | 2022-01-28 16:52 | ED.GENADULT ---
HPI - General Adult General Chief complaint: Skin/Abscess/Foreign Body Stated complaint: Rash Source: patient Mode of arrival: ambulatory Limitations: no limitations History of Present Illness HPI narrative: Patient presents for evaluation of pruritic rash to her bilateral lower extremities and back for the last 2 days. No new lotions, soaps, detergents, topical products. She initially thought her symptoms were 2/2 mosquito bites after spending some time outdoors. Later, she thought that her symptoms were related to scabies as she has had scabies in the past. She reports raised areas around hair follicles to bilateral lower extremities. She has not used any [place] as of late. She has not shaved her legs recently. No one at home has had similar symptoms. She took oral benadryl which helped alleviate her symptoms for about two hours at a time. She had symptom recurrence thereafter. Benadryl also made her drowsy. Related Data Allergies Allergy/AdvReac Type Severity Reaction Status Date / Time No Known Allergies Allergy Verified 01/28/22 16:19 Review of Systems Review of Systems: CONSTITUTIONAL: Denies fever, chills, or sweats. EYES: Denies visual changes, redness, or discharge. ENT: Denies rhinorrhea, congestion, sore throat, or otalgia. CARDIOVASCULAR: Denies chest pain, palpitations, or edema. RESPIRATORY: Denies cough or dyspnea. GASTROINTESTINAL: Denies abdominal pain, nausea, vomiting, or diarrhea. GENITOURINARY: Denies dysuria or hematuria. SKIN: Reports pruritic rash to back and BLE MUSCULOSKELETAL: Denies back pain, joint pain, or myalgia. NEUROLOGIC: Denies headache, numbness, dizziness, or weakness. PSYCHIATRIC: Denies anxiety or depression. [facility] Past Medical History Medical History Gestational hypertension Hypertension Surgical History Surgical History History of Family History Family History Other No pertinent family history Social History Social History Smoking status: Never smoker Second hand tobacco smoke exposure: No Substance use: never Living arrangements: with family Gender identity (if verbalized by the patient): Female Sexual Orientation (if Verbalized by the Patient): Straight or Heterosexual Spiritual care concerns: No Exam Narrative: GENERAL: Well-appearing, well-nourished, and in no acute distress. HEAD: Normocephalic, atraumatic. EYES: PERRLA and EOMI. ENT: Nares clear, no rhinorrhea or epistaxis. Mucous membranes moist. Oropharynx without tonsillar hypertrophy exudate or other lesions. Bilateral TMs pearly dey nonbulging NECK: Supple. No adenopathy or masses. No carotid bruits or JVD CHEST: Clear to auscultation. No respiratory distress. No wheezes rales or rhonchi HEART: Regular rate and rhythm. No murmur heard. Normal peripheral pulses. ABDOMEN: Soft, nontender, nondistended, normal active bowel sounds. EXTREMITIES: Normal range of motion. No edema. SKIN: Raised areas of swelling with hyperpigmentation and some erythema surrounding the hair follicles of bilateral lower extremities and low back NEURO: No focal deficits. Alert and oriented x3. PSYCH: Normal mood and affect. Course Course Emergency Course: This is a 26-year-old female that presented for evaluation of pruritic rash. ? 2/2 scabies. Will tx with permithrin. Appears to be some form of folliculitis. Will tx with steroids, benadryl and cephalexin. Given solumedrol here. Contacted pharmacy due to elevated blood pressure and patient's report that she was recently on antihypertensive. They indicated she filled nifedipine extended release 60 mg on 12/03/2021. Patient states she has medication at home. Advised to restart. Follow up outpatient for [facility]
== END 2022-01-28 17:27 | disposition home or self-care (01) ==
PROVIDERS: Emergency Provider Nurse Practitioner
DX: L73.9 Follicular disorder, unspecified (principal); I10 Essential (primary) hypertension
CPT/HCPCS: 96372; 99213; G0463; J2930

== ENCOUNTER 2022-07-24 16:44 | Emergency (ER) | payer OTHER, SELFPAY ==
[2022-07-24 16:48] VITALS: BP 220/135; PULSE 116; RESP 16; TEMP 36.9; O2SAT 100
--- NOTE | 2022-07-24 16:59 | ED.URI ---
HPI - URI/Sore Throat General Chief Complaint: Upper Respiratory Infection Stated Complaint: ears/wheezes when she lays down Time Seen by Provider: 07/24/22 16:45 Source: patient and RN notes reviewed History of Present Illness HPI Narrative: patient is a 26-year-old female who presents to urgent care with complaints of left ear pain, wax in the left ear, wheezing only at night and a cough. Patient states has been ongoing for the last week or so and she has tried NyQuil. Patient states that it makes her anxious due to the wheezing. Denies any fever, nausea, vomiting, headache or lightheadedness. Patient states that she was not aware of her high blood pressure however she was on blood pressure medications with her . Patient has not been taking the blood pressure medications since the of her last child. No other acute complaints. No acute distress noted. Patient aware of the plan of care. Some parts of this dictation were generated by voice recognition software and may contain typographical and/or grammatical inaccuracies. Related Data Allergies Allergy/AdvReac Type Severity Reaction Status Date / Time No Known Allergies Allergy Verified 01/28/22 16:19 Review of Systems Review of Systems: CONSTITUTIONAL: Denies fever, chills, or sweats. EYES: Denies visual changes, redness, or discharge. ENT: Denies rhinorrhea, congestion, sore throat. Reports of left otalgia and earwax CARDIOVASCULAR: Denies chest pain, palpitations, or edema. RESPIRATORY: Reports of cough with wheezing at night GASTROINTESTINAL: Denies abdominal pain, nausea, vomiting, or diarrhea. GENITOURINARY: Denies dysuria or hematuria. SKIN: Denies rash or itching. MUSCULOSKELETAL: Denies back pain, joint pain, or myalgia. NEUROLOGIC: Denies headache, numbness, or weakness. All other systems reviewed are negative, except as documented in HPI. [facility] Past Medical History Medical History (Updated 07/24/22 @ 17:20 by MAC Centeno) Gestational hypertension Hypertension Surgical History Surgical History History of Family History Family History Other No pertinent family history Social History Social History Smoking status: Never smoker Second hand tobacco smoke exposure: No Substance use: never Living arrangements: with family Gender identity (if verbalized by the patient): Female Sexual Orientation (if Verbalized by the Patient): Straight or Heterosexual Spiritual care concerns: No Comments At the time of my signature, I reviewed and agree with the nursing past medical, surgical, social, and family history. There is no relevant family history pertinent to the patient complaint. Exam Narrative: GENERAL: This is a well-nourished, well-developed patient, in no apparent distress. HEAD: normocephalic, atraumatic. EYES: PERRL. Sclera clear/white. Vision is grossly intact. EARS: External ears normal, auditory canals clear and without drainage, cerumen noted to left ear canal.TMs normal without perforation. Hearing grossly intact. NOSE: External nose normal with no obvious nasal discharge, nares without redness, no rhinorrhea. THROAT: Mucous membranes moist, posterior pharynx clear. mild postnasal drainage NECK: Neck supple, non-tender without lymphadenopathy, masses or thyromegaly. CARDIOVASCULAR: Regular rate and rhythm, 90 to auscultation RESPIRATORY: Clear to auscultation. Breath sounds equal bilaterally. No wheezes, rales, or rhonchi. SKIN: warm, intact with no suspicious lesions or rash, good texture and turgor. NEURO: awake, alert, and oriented to person, place and time. There were no obvious focal neurologic abnormalities. EXTREMITIES: No clubbing, cyanosis, or edema. Course Course Level of Care: Express Care Vis
--- NOTE | 2022-07-24 17:36 | PC.NURSE ---
Discharge BP manually 200/137
== END 2022-07-24 17:28 | disposition home or self-care (01) ==
PROVIDERS: Emergency Provider Nurse Practitioner Family; PCP Emergency Medicine
DX: R06.2 Wheezing (principal); H61.22 Impacted cerumen, left ear; I10 Essential (primary) hypertension
CPT/HCPCS: 69210; 99213; G0463

== ENCOUNTER 2023-07-18 17:20 | Emergency (ER) | payer OTHER, SELFPAY ==
[2023-07-18 17:36] VITALS: BP 181/105; PULSE 80; RESP 16; TEMP 36.8; O2SAT 100
--- NOTE | 2023-07-18 17:50 | ED.HA ---
HPI - Headache General Chief Complaint: Headache Stated Complaint: Headache/Neck Pain Time Seen by Provider: 07/18/23 17:42 Source: patient and RN notes reviewed Mode of arrival: ambulatory Limitations: no limitations History of Present Illness HPI Narrative: Patient presents today complaining of a global headache and her mentally over the past 2 days, bilateral eye pressure, and, fuzzies in her eyes. States this is the worst headache she has ever had and currently rates at 9.5/10. No history of headaches. Blood pressure upon arrival was 181/105. Patient currently takes losartan, labetalol, hydralazine for her blood pressure. Also takes Lasix. Denies chest pain, shortness of breath, numbness or tingling in the extremities, weakness Related Data Home Medications Medication Instructions Recorded Confirmed Lasix 07/18/23 hydralazine 07/18/23 labetalol 07/18/23 losartan 07/18/23 Allergies Allergy/AdvReac Type Severity Reaction Status Date / Time No Known Allergies Allergy Verified 01/28/22 16:19 Review of Systems Review of Systems: CONSTITUTIONAL: Denies body aches, fever, chills, or sweats. EYES: Denies visual changes, redness, or discharge.+ bilateral eye pain and floaters ENT: Denies rhinorrhea, congestion, sore throat, or otalgia. CARDIOVASCULAR: Denies chest pain, palpitations, or edema. RESPIRATORY: Denies cough or dyspnea. GASTROINTESTINAL: Denies abdominal pain, nausea, vomiting, or diarrhea. GENITOURINARY: Denies dysuria or hematuria. SKIN: Denies rash, itching, or wounds. MUSCULOSKELETAL: Denies back pain, joint pain, or myalgia. NEUROLOGIC: Denies numbness, tingling, or weakness.+ headache PSYCH: Denies depression or anxiety. [facility]END[facility] S[facility] TO [facility] Past Medical History Medical History Gestational hypertension Hypertension Surgical History Surgical History History of Family History Family History Other No pertinent family history Social History Social History Smoking status: Never smoker Second hand tobacco smoke exposure: No Substance use: never Living arrangements: with family Gender identity (if verbalized by the patient): Female Sexual Orientation (if Verbalized by the Patient): Straight or Heterosexual Spiritual care concerns: No Comments At time of signature, I have reviewed and agree with nursing past medical, surgical, social and family history unless otherwise noted. Please see nursing chart for further information. There is no relevant family history pertinent to the presenting complaint Exam Narrative: GENERAL: Well-appearing, well-nourished, and in no acute distress. HEAD: Normocephalic, atraumatic. EYES: EOMI. PERRL. No redness or drainage. Conjunctivae normal. ENT: Mucous membranes pink and moist. NECK: Normal AROM. Supple. No lymphadenopathy. CHEST: No respiratory distress. Clear to auscultation. HEART: Regular rate and rhythm. No murmur appreciated. Normal peripheral pulses. EXTREMITIES: Normal range of motion. No edema. SKIN: Warm, dry, no rash. Capillary refill normal. Normal skin turgor. NEURO: No focal deficits. Alert and oriented x3. Gait steady. PSYCH: Normal affect. No signs of depression or anxiety. Course Course Level of Care: Express Care Visit Vital Signs Vital signs: Vital Signs Temperature 98.2 F 07/18/23 17:36 Pulse Rate 80 07/18/23 17:36 Respiratory Rate 16 07/18/23 17:36 Blood Pressure 181/105 H 07/18/23 17:36 Pulse Oximetry 100 07/18/23 17:36 Oxygen Delivery Room Air 07/18/23 17:36 Temperature 98.2 F 07/18/23 17:36 Pulse Rate 80 07/18/23 17:36 Respiratory Rate 16 07/18/23 17:36 Blood Pressure 181/105 H 07/18/23 17:36 Pulse Oximet
== END 2023-07-18 17:58 | disposition short-term general hospital (02) ==
PROVIDERS: Emergency Provider Nurse Practitioner; PCP Emergency Medicine
DX: R51.9 Headache, unspecified (principal); I10 Essential (primary) hypertension
CPT/HCPCS: 99212; G0463